=== PATIENT | female | born 1985 | race Caucasian/White ===

== ENCOUNTER → 2023-12-07 13:09 | Outpatient (REF) | payer BC, SELFPAY | LOC: RAD 13:09 | PROVIDERS: ATTENDING PHYSICIAN Nurse Practitioner | DX: M25.551 Pain in right hip (principal); M25.552 Pain in left hip | CPT/HCPCS: 73522 ==

== ENCOUNTER 2024-03-08 09:06 | Emergency (ER) | payer BC, SELFPAY ==
[2024-03-08 09:07] VITALS: BP 143/110
--- NOTE | 2024-03-08 09:49 | ED.GENMED ---
History of Present Illness
General
Chief Complaint: Abdominal Pain
Source: patient
Exam Limitations: none
Time Seen by Provider: 03/08/24 09:32
Travel History
Have you had any contact with someone who has COVID-19?: No
Do you have any symptoms of coronavirus? Fever > 100 degrees, chills, cough, shortness of breath, sore throat, loss of taste or smell, muscle aches, or headache?: No
History of Present Illness
History of Present Illness:
38-year-old female sudden onset of lower abdominal pain overnight. [place] fine when she went to bed. She had bowel movements x 2 which were normal which did not relieve the symptoms. Some of the pain radiates to her pelvis and her rectum. Symptoms
have eased off somewhat. No vomiting no back pain no fever. She is midcycle.
Past History
Past History
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
Social History
Tobacco: Non-smoker
Alcohol: None
Drug: None
Living: with family
Employment: Employed
Family History
Family History: Other (n/c)
Review of Systems
Review of Systems
All Other Systems: Not applicable
Constitutional: Denies fever
Respiratory: Reports no symptoms
Cardiac: Reports no symptoms
: Reports no symptoms
Phy Exam
Physical Exam
Physical Exam:
GENERAL: Alert and oriented in no apparent distress. Sitting up in bed nontoxic in no distress
EYE: Orbits normal.
NECK: Supple
CARDIAC: Regular rate and rhythm without any obvious murmurs.
LUNGS: Clear breath sounds,normal
ABDOMEN: Soft, bowel sounds present. Mild diffuse lower abdominal tenderness slightly greater on the left. No rebound or guarding no mass or hernia
NEUROLOGICAL: Alert and oriented , grossly non-focal
SKIN: Warm and dry, no rash or lesion, no discoloration, skin intact.
MUSCULOSKELETAL: No edema,no deformity.Good color
PSYCH: Normal and appropriate interaction.
Course
Orders/Labs/Results
Orders:
Orders
03/08/24 09:46
CT Abd/pel W Iv And Oral Contr Urgent
Comment:
Reason For Exam: Diffuse lower abdominal pain
IV Insert/Care/Rem.- Treatment PRN
0.9% Sodium Chloride 1000 ml [Nss] 1,000 ml IV BOLUS
Iohexol [Omnipaque] See Protocol PO NOW STA
Test Result ONCE
US Pelvis W Transvag Combined Urgent
Reason For Exam: Pelvic pain
03/08/24 09:52
Complete Blood Count/With Diff Urgent
Comprehensive Metabolic Panel Urgent
HCG, Serum Qualitative Screen Urgent
Lipase Urgent
03/08/24 11:21
Urinalysis Reflex To Culture Urgent
Date Specimen was Collected: 03/08/24
Time Specimen was Collected: 11:20
Urine Microscopic Reflex Cult Urgent
Abnormal Lab Results
03/08/24 03/08/24
09:52 11:21
WBC 19.1 H 10^3/uL
(4.8-10.8)
Hgb 11.9 L g/dL
(12.0-16.0)
Hct 36.4 L %
(37.0-47.0)
MCHC 32.7 L g/dL
(33.0-37.0)
RDW 14.6 H %
(11.5-14.5)
Plt Count 448 H 10^3/uL
(130-400)
Abs Immat Gran (auto) 0.1 H 10^3/uL
(0-0.05)
Absolute Neuts (auto) 14.4 H 10^3/uL
(1.4-6.5)
Absolute Monos (auto) 1.0 H 10^3/uL
(0.1-0.6)
Immature Gran % 0.6 H %
(0-0.5)
Neutrophils % 75.7 H %
(42.2-75.2)
Lymphocytes % 16.6 L %
(20.5-51.1)
Ur Occult Blood Reflex Trace A
(Negative)
03/08/24 09:52
03/08/24 09:52
Vital Signs
Initial and Last Documented VS:
Initial Vital Signs
Temp Pulse Resp BP Pulse Ox
98.2 F 80 20 143/110 100
03/08/24 09:07 03/08/24 09:07 03/08/24 09:07 03/08/24 09:07 03/08/24 09:07
Last Documented Vital Signs
Temp Pulse Resp BP Pulse Ox
98.2 F 80 20 143/110 100
03/08/24 09:07 03/08/24 09:07 03/08/24 09:07 03/08/24 09:07 03/08/24 09:07
MDM/Problems Addressed
Differential Diagnosis Includes:
Large differential including [employer] issue with sudden onset. Could be a ruptured ovarian cyst. Doubt torsion. She is not behaving like a torsion. She is in no distress. Diverticulitis or appendicitis also in the differential. Workup in progress
including labs ultrasound and CT. If ultrasound clearly gives us an answer we can cancel the CT
*Radiology
Radiology exam reviewed: radiology read reviewed (Ultrasound shows good flow. 2.8 cm complex functional complex cyst. Some free fluid. Good flow to both ovaries. CT shows mass in the left upper quadrant at the tail of pancreas.)
*Pulse Oximetry
Patient hypoxic: no
*Critical Care Note
Total Time (30-74mins, 75-104mins- exclusive of procedures): Not Applicable
Update Note
Update Note:
Patient's symptoms are improving. She remains nontoxic. She does have a leukocytosis that is slightly increased but has a chronic leukocytosis from her splenic issues. I do not feel the mass or structure at the tip of the pancreas has any bearing
on current symptoms. This was sudden pain last night. Most likely a ruptured cyst. Nothing acutely surgical. Outpatient observation and follow-up. Patient was given copy of CT for follow-up MRI and ultrasound for follow-up ultrasound
ED Attending Note
-
Portions of this chart may have been created with voice recognition software.� Occasional wrong word or��sound alike� substitutions may have occurred due to the inherent limitations of voice recognition software.
Discharge Plan
Departure
Patient Disposition: Home (Routine Discharge)
Date of Disposition: 03/08/24
Time of Disposition: 13:22
Patient with high blood pressure during this ER visit?: Yes
Discharge Problem:
Acute lower abdominal pain, Possible ruptured cyst, Inc. lesion at the tip of the pancreas
Instructions: Ovarian cysts, Abdominal Pain, BLOOD PRESSURE
Prescriptions:
No Action
amoxicillin [Amoxil] 875 MG tablet
875 mg PO BID Qty: 20 0RF
Referrals:
Kayla Fitzpatrick CRNP [Family Provider] - Follow up in 2-3 days
Activity Restrictions/Additional Instructions:
Get a follow-up ultrasound in 6 to 12 weeks as directed on the ultrasound report
Follow-up MRI as we discussed
Recheck with increased pain fever vomiting or if symptoms have not resolved in 1 to 2 days
Interventions
Interventions:
*Risk Screen - Suicide Last Done: 03/08/24 09:07
*General Assessment Last Done: 03/08/24 09:07
*Neglect/Abuse Screening Last Done: 03/08/24 09:07
LM-Pszrgu-Whrwipbidd Assessment Last Done: 03/08/24 09:59
Discharge Date and Time
Print Language: GUINEAN
[2024-03-08] MEDS: OMNIPAQUE 50 ML PO (09:51)
[2024-03-08] MEDS: NSS 1000 IV (09:58)
[2024-03-08 10:11] LABS: % Basophils 0.7 % (0-2); % Immature Granulocytes 0.6 % (0-0.5); % Lymphocytes 16.6 % (20.5-51.1); % Monocytes 5.4 % (1.7-9.3); % Neutrophils 75.7 % (42.2-75.2); Absolute Basophils 0.1 10^3/uL (0-0.2); Absolute Eosinophils 0.2 10^3/uL (0-0.7); Absolute Immature Granulocytes 0.1 10^3/uL (0-0.05); Absolute Lymphocytes 3.2 10^3/uL (1.2-3.4); Absolute Neutrophils 14.4 10^3/uL (1.4-6.5); Hematocrit 36.4 % (37.0-47.0); Hemoglobin 11.9 g/dL (12.0-16.0); Mean Corp Hgb Conc. 32.7 g/dL (33.0-37.0); Mean Corpuscular Hgb 28.3 pg (27.0-31.0); Mean Corpuscular Volume 86.7 fL (81.0-99.0); Mean Platelet Volume 9.1 fL (7.4-10.4); Nucleated Red Blood Cells % 0 %; Platelet Count 448 10^3/uL (130-400); Red Cell Dist. Width 14.6 % (11.5-14.5); White Blood Cell Count 19.1 10^3/uL (4.8-10.8)
[2024-03-08 10:27] LABS: ALT (SGPT) 23 U/L (0-35); AST (SGOT) 25 U/L (14-36); Albumin 4.1 g/dl (3.5-5.0); Alkaline Phosphatase 99 U/L (38-126); Blood Urea Nitrogen 12 mg/dl (7-17); Calcium 9.8 mg/dl (8.4-10.2); Carbon Dioxide 25 mmol/L (22-30); Chloride 104 mmol/L (98-107); Glucose 92 mg/dl (70-99); Lipase 91 U/L (23-300); Potassium 4.4 mmol/L (3.5-5.1); Sodium 138 mmol/L (135-145); Total Bilirubin 0.5 mg/dl (0.2-1.3); Total Protein 7.5 g/dl (6.3-8.2); eGFR > 60.00
[2024-03-08 10:44] LABS: HCG, Serum Qualitative Screen Negative
[2024-03-08 11:57] LABS: Urine Albumin Negative (Neg - Trace); Urine Bilirubin Negative (Negative); Urine Character Clear (Clear); Urine Color Yellow; Urine Glucose Negative (Negative); Urine Ketone Negative (Negative); Urine Leukocyte Negative (Negative); Urine Nitrite Negative (Negative); Urine Occult Blood Trace (Negative); Urine Specific Gravity 1.005 (<1.030); Urine Urobilinogen Negative (Neg - 1+)
[2024-03-08 13:31] VITALS: BP 154/74
[2024-03-08 13:50] LABS: Urine Red Blood Cell 0-2 /HPF (0-2)
[2024-03-08 13:51] LABS: Urine White Cell 0-2 /HPF (0-5)
== END 2024-03-08 13:33 | disposition home or self-care (01) ==
LOC: EMR 09:06
PROVIDERS: EMERGENCY PHYSICIAN Emergency Medicine; FAMILY PHYSICIAN Nurse Practitioner
DX: R10.30 Lower abdominal pain, unspecified (principal)
CPT/HCPCS: 99284; 96360; 74177; 76830; 76856; 80053; 81003; 81015; 83690; 84703; 85025; Q9967

== ENCOUNTER → 2024-05-11 07:33 | Outpatient (REF) | payer BC, SELFPAY | LOC: PAVMRI 07:33 | PROVIDERS: ATTENDING PHYSICIAN Nurse Practitioner | DX: K86.89 Other specified diseases of pancreas (principal) | CPT/HCPCS: 74183; A9575 ==

== ENCOUNTER 2024-08-09 13:35 | Emergency (ER) | payer BC, SELFPAY ==
[2024-08-09 13:37] VITALS: BP 185/121
[2024-08-09 13:57] VITALS: BP 143/84
--- NOTE | 2024-08-09 13:59 | ED.GENMED ---
History of Present Illness
General
Chief Complaint: Nose Bleed
Source: patient
Exam Limitations: none
Time Seen by Provider: 08/09/24 13:52
History of Present Illness
History of Present Illness:
39-year-old female here for 2 issues. Nosebleed from the left nares spontaneous started about an hour ago. Patient self pinched with resolution. Noted moderate blood loss. No trauma no preceding explanation for why she bled. No history of
nosebleeds. Also has felt slightly off the last few days. Some weakness. Noted to have significant hypertension today checked by her sister. Denies chest pain or shortness of breath.
Past History
Past History
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
Social History
Tobacco: Non-smoker
Alcohol: None
Drug: None
Living: with family
Employment: Employed
Family History
Family History: Other (n/c)
Review of Systems
Review of Systems
All Other Systems: Not applicable
Constitutional: Denies fever
Respiratory: Reports no symptoms
Cardiac: Reports no symptoms
Phy Exam
Physical Exam
Physical Exam:
GENERAL: Alert and oriented in no apparent distress
EYE: Orbits normal.
NECK: Supple
ENT: Pharynx without erythema. No active bleeding. Right nares clear. Irritated area of the left nasal septum. No active bleeding
CARDIAC: Regular rate and rhythm without any obvious murmurs.
LUNGS: Clear breath sounds,normal
ABDOMEN: Soft, without focal tenderness or distention
NEUROLOGICAL: Alert and oriented , grossly non-focal
SKIN: Warm and dry, no rash or lesion, no discoloration, skin intact.
MUSCULOSKELETAL: No edema,no deformity.Good color
PSYCH: Normal and appropriate interaction.
Course
Orders/Labs/Results
Orders:
Orders
08/09/24 13:58
Electrocardiogram (*1) Stat
Reason for Study: Other
Other Reason for Exam: chest pain
EKG- Treatment ONCE
IV Insert/Care/Rem.- Treatment PRN
Test Result ONCE
Pulse Ox/cont/shift [RESP] Stat
Quantity: 1
08/09/24 14:11
Basic Metabolic Panel Urgent
Complete Blood Count/With Diff Urgent
HCG, Serum Qualitative Screen Urgent
Troponin I Urgent
Urinalysis Reflex To Culture Urgent
Date Specimen was Collected: 08/09/24
Time Specimen was Collected: 14:07
Urine Microscopic Reflex Cult Urgent
Urine Culture Urgent
EDMOND Source: U
Specimen Description:
Date Specimen was Collected: 08/09/24
Time Specimen was Collected: 14:07
Abnormal Lab Results
08/09/24
14:11
WBC 17.8 H 10^3/uL
(4.8-10.8)
Hct 36.6 L %
(37.0-47.0)
MCHC 32.8 L g/dL
(33.0-37.0)
RDW 14.6 H %
(11.5-14.5)
Plt Count 512 H 10^3/uL
(130-400)
Abs Immat Gran (auto) 0.1 H 10^3/uL
(0-0.05)
Absolute Neuts (auto) 12.1 H 10^3/uL
(1.4-6.5)
Absolute Lymphs (auto) 3.9 H 10^3/uL
(1.2-3.4)
Absolute Monos (auto) 1.3 H 10^3/uL
(0.1-0.6)
Ur Occult Blood Reflex 3+ A
(Negative)
Urine Nitrite (Reflex) Positive A
(Negative)
Leukocyte Esterase Rfl 1+ A
(Negative)
Urine RBC 11-15 A /HPF
(0-2)
Urine WBC (Reflex) 11-15 A /HPF
(0-5)
Urine Bacteria (Reflex) Many A
(Negative)
08/09/24 14:11
08/09/24 14:11
Vital Signs
Initial and Last Documented VS:
Initial Vital Signs
Temp Pulse Resp BP Pulse Ox
98.2 F 103 18 185/121 95
08/09/24 13:37 08/09/24 13:37 08/09/24 13:37 08/09/24 13:37 08/09/24 13:37
Last Documented Vital Signs
Temp Pulse Resp BP Pulse Ox
98.2 F 83 16 160/89 98
08/09/24 13:37 08/09/24 15:37 08/09/24 16:00 08/09/24 15:37 08/09/24 15:37
Procedures
Nosebleed
Drug treatment: Epinephrine
Treatment: Silver nitrate cautery and Merocel packing
Post treatment bleeding: none- good control
MDM/Problems Addressed
Differential Diagnosis Includes:
Patient with 2 independent processes. Bleeding from left nares at Cookie box plexus. Will cauterize. Other symptoms of a weakness lightheadedness elevated blood pressure. Will check labs test and cardiac testing.
*Pulse Oximetry
Patient hypoxic: no
*Critical Care Note
Total Time (30-74mins, 75-104mins- exclusive of procedures): Not Applicable
Data Reviewed
Review of Other/Old Records Reveals: Labs, Records and Testing
Update Note
Update Note:
Patient is remained stable. No recurrent bleeding. Discharged to follow-up
ED Attending Note
-
Portions of this chart may have been created with voice recognition software.� Occasional wrong word or��sound alike� substitutions may have occurred due to the inherent limitations of voice recognition software.
Discharge Plan
Departure
Patient Disposition: Home (Routine Discharge)
Date of Disposition: 08/09/24
Time of Disposition: 16:11
Patient with high blood pressure during this ER visit?: Yes
Discharge Problem:
Left nares epistaxis, Chronic leukocytosis, Elevated blood pressure reading, Possible UTI
Instructions: Nosebleeds (DC), Urinary Tract Infection, Adult ED, BLOOD PRESSURE
Prescriptions:
New
cefdinir 300 mg capsule
300 mg PO BID 5 Days Qty: 10 0RF
No Action
amoxicillin [Amoxil] 875 MG tablet
875 mg PO BID Qty: 20 0RF
Referrals:
Kayla Fitzpatrick CRNP [Family Provider] - Follow up in 2-3 days
Jozef Davila MD [Active] - Follow up in 2-3 days
Activity Restrictions/Additional Instructions:
The prescription was sent to your pharmacy
Packing removal in 2 to 3 days
Interventions
Interventions:
*Risk Screen - Suicide Last Done: 08/09/24 13:38
*General Assessment Last Done: 08/09/24 13:38
*Neglect/Abuse Screening Last Done: 08/09/24 13:38
ED- Fall Risk Assessment Last Done: 08/09/24 15:38
*ED COVID-19 Vaccine History Last Done: 08/09/24 14:00
ED-EENT Assessment Last Done: 08/09/24 14:00
Discharge Date and Time
Print Language: [place]
[2024-08-09 14:18] LABS: % Basophils 0.6 % (0-2); % Eosinophils 1.7 % (0-6); % Immature Granulocytes 0.5 % (0-0.5); % Lymphocytes 21.7 % (20.5-51.1); % Monocytes 7.2 % (1.7-9.3); % Neutrophils 68.3 % (42.2-75.2); Absolute Basophils 0.1 10^3/uL (0-0.2); Absolute Eosinophils 0.3 10^3/uL (0-0.7); Absolute Immature Granulocytes 0.1 10^3/uL (0-0.05); Absolute Lymphocytes 3.9 10^3/uL (1.2-3.4); Absolute Monocytes 1.3 10^3/uL (0.1-0.6); Absolute Neutrophils 12.1 10^3/uL (1.4-6.5); Hematocrit 36.6 % (37.0-47.0); Mean Corp Hgb Conc. 32.8 g/dL (33.0-37.0); Mean Corpuscular Hgb 28.4 pg (27.0-31.0); Mean Corpuscular Volume 86.7 fL (81.0-99.0); Mean Platelet Volume 9.1 fL (7.4-10.4); Nucleated Red Blood Cells % 0 %; Platelet Count 512 10^3/uL (130-400); Red Blood Cell Count 4.22 10^6/uL (4.20-5.40); Red Cell Dist. Width 14.6 % (11.5-14.5); White Blood Cell Count 17.8 10^3/uL (4.8-10.8)
[2024-08-09 14:20] LABS: Urine Albumin Trace (Neg - Trace); Urine Bilirubin Negative (Negative); Urine Character Clear (Clear); Urine Color Yellow; Urine Glucose Negative (Negative); Urine Ketone Negative (Negative); Urine Leukocyte 1+ (Negative); Urine Nitrite Positive (Negative); Urine Occult Blood 3+ (Negative); Urine Specific Gravity 1.015 (<1.030); Urine Urobilinogen Negative (Neg - 1+); Urine pH 6.5 (5.0-9.0)
[2024-08-09 14:32] LABS: HCG, Serum Qualitative Screen Negative
[2024-08-09 14:36] LABS: Blood Urea Nitrogen 11 mg/dl (7-17); Calcium 9.3 mg/dl (8.4-10.2); Carbon Dioxide 25 mmol/L (22-30); Chloride 103 mmol/L (98-107); Glucose 82 mg/dl (70-99); Potassium 3.9 mmol/L (3.5-5.1); Sodium 139 mmol/L (135-145); Urine Squamous Cell >30 /LPF (Few); eGFR > 60.00
[2024-08-09 14:37] LABS: Urine Urothelial Cell 0-2 /LPF (FEW)
[2024-08-09 14:38] LABS: Urine Bacteria Many (Negative)
[2024-08-09 14:46] LABS: Troponin I < 0.012 ng/ml
[2024-08-09 15:37] VITALS: BP 160/89
== END 2024-08-09 16:21 | disposition home or self-care (01) ==
LOC: EMR 13:35
PROVIDERS: EMERGENCY PHYSICIAN Emergency Medicine; FAMILY PHYSICIAN Nurse Practitioner
DX: R04.0 Epistaxis (principal); D72.829 Elevated white blood cell count, unspecified; R03.0 Elevated blood-pressure reading, without diagnosis of hypertension
CPT/HCPCS: 99283; 30901; 80048; 81003; 81015; 84484; 84703; 85025; 87077; 87086; 93005

== ENCOUNTER 2024-08-10 22:31 | Emergency (ER) | payer BC, SELFPAY ==
[2024-08-10 22:39] VITALS: BP 194/121
--- NOTE | 2024-08-10 23:50 | ED.GENMED ---
Addendum entered and electronically signed by Erika Carrillo PA-C 08/11/24 09:46:
urine culture pos for e coli prelim
pt on cefdinir
feeling ok
await sensitivities
Original Note:
History of Present Illness
General
Chief Complaint: Nose Bleed
Source: patient
Exam Limitations: none
Time Seen by Provider: 08/10/24 23:19
History of Present Illness
History of Present Illness:
39-year-old female recurrent nosebleed that started at 630 this evening. Moderate nature. Seen yesterday by myself. Cauterized. Tach. No other complaints. Some nausea however from swallowing blood
Past History
Past History
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
Social History
Tobacco: Non-smoker
Alcohol: None
Drug: None
Living: with family
Employment: Employed
Family History
Family History: Other (n/c)
Phy Exam
Physical Exam
Physical Exam:
General: Nontoxic appearing in no distress
Skin: Warm and dry, no rash
Neuro: Alert, nontoxic, grossly nonfocal
Psychiatric: Good eye contact and appropriate
ENT: Moderate bleeding left nares. Bright red. Arterial pumper inferior border along the base of the septum
Course
Orders/Labs/Results
Orders:
Orders
08/10/24 23:43
Tranexamic Acid 1,000 mg .ROUTE .STK-MED ONE
Vital Signs
Initial and Last Documented VS:
Initial Vital Signs
Temp Pulse Resp BP Pulse Ox
98.2 F 108 16 194/121 98
08/10/24 22:39 08/10/24 22:39 08/10/24 22:39 08/10/24 22:39 08/10/24 22:39
Last Documented Vital Signs
Temp Pulse Resp BP Pulse Ox
98.2 F 83 20 166/101 97
08/10/24 22:39 08/10/24 23:58 08/10/24 23:58 08/10/24 23:58 08/10/24 23:58
*Critical Care Note
Total Time (30-74mins, 75-104mins- exclusive of procedures): Not Applicable
Update Note
Update Note:
Procedure: Initial cotton gauze with epinephrine. This did not even remotely control the bleeding. This was removed. Suction. Arterial bleeder noted. However bleeding too fast to cauterize. Then attempted anterior packing this also did not
succeed. Double Merocel would not fully but does appear to keep the bleeding under somewhat better control. Feel this needs ENT's involvement. They were called.
Seen by ENT. Currently stable. Discharged to follow-up
ED Attending Note
-
Portions of this chart may have been created with voice recognition software.� Occasional wrong word or��sound alike� substitutions may have occurred due to the inherent limitations of voice recognition software.
Discharge Plan
Departure
Patient Disposition: Home (Routine Discharge)
Date of Disposition: 08/11/24
Time of Disposition: 00:55
Patient with high blood pressure during this ER visit?: Yes
Discharge Problem:
Recurrent epistaxis
Instructions: Nosebleeds (DC), BLOOD PRESSURE
Prescriptions:
No Action
amoxicillin [Amoxil] 875 MG tablet
875 mg PO BID Qty: 20 0RF
cefdinir 300 mg capsule
300 mg PO BID 5 Days Qty: 10 0RF
Referrals:
Kayla Fitzpatrick CRNP [Family Provider] -
Yoav Wiseman MD [Active] - Follow up in 2-3 days
Interventions
Interventions:
*Risk Screen - Suicide Last Done: 08/10/24 22:39
*General Assessment Last Done: 08/10/24 22:39
*Neglect/Abuse Screening Last Done: 08/10/24 22:39
*ED COVID-19 Vaccine History Last Done: 08/10/24 22:39
ED-EENT Assessment Last Done: 08/11/24 00:02
Discharge Date and Time
Print Language: TAMAZIGHT
[2024-08-10 23:58] VITALS: BP 166/101
[2024-08-11] VITALS: BMI 39.0
[2024-08-11 00:56] VITALS: BP 162/96
== END 2024-08-11 01:17 | disposition home or self-care (01) ==
LOC: EMR 22:31
PROVIDERS: EMERGENCY PHYSICIAN Emergency Medicine; FAMILY PHYSICIAN Nurse Practitioner
DX: R04.0 Epistaxis (principal)
CPT/HCPCS: 99282; 30901

== ENCOUNTER → 2024-10-05 12:51 | Outpatient (REF) | payer BC, SELFPAY | LOC: RAD 12:51 | PROVIDERS: ATTENDING PHYSICIAN Family Medicine; FAMILY PHYSICIAN Nurse Practitioner | DX: Z87.891 Personal history of nicotine dependence (principal); J10.1 Influenza due to other identified influenza virus with other respiratory manifestations; M94.0 Chondrocostal junction syndrome [Tietze]; Z90.81 Acquired absence of spleen | CPT/HCPCS: 71046 ==

== ENCOUNTER 2024-12-25 16:18 | Emergency (ER) | payer BC, SELFPAY ==
[2024-12-25 16:22] VITALS: BP 163/110
[2024-12-25 16:46] LABS: % Basophils 0.4 % (0-2); % Immature Granulocytes 0.2 % (0-0.5); % Lymphocytes 18.3 % (20.5-51.1); % Monocytes 7.6 % (1.7-9.3); % Neutrophils 71.5 % (42.2-75.2); Absolute Eosinophils 0.2 10^3/uL (0-0.7); Absolute Lymphocytes 1.9 10^3/uL (1.2-3.4); Absolute Monocytes 0.8 10^3/uL (0.1-0.6); Absolute Neutrophils 7.3 10^3/uL (1.4-6.5); Hematocrit 37.6 % (37.0-47.0); Hemoglobin 12.6 g/dL (12.0-16.0); Mean Corp Hgb Conc. 33.5 g/dL (33.0-37.0); Mean Corpuscular Hgb 27.6 pg (27.0-31.0); Mean Corpuscular Volume 82.5 fL (81.0-99.0); Mean Platelet Volume 9.6 fL (7.4-10.4); Nucleated Red Blood Cells % 0 %; Platelet Count 396 10^3/uL (130-400); Red Blood Cell Count 4.56 10^6/uL (4.20-5.40); Red Cell Dist. Width 16.1 % (11.5-14.5); White Blood Cell Count 10.2 10^3/uL (4.8-10.8)
[2024-12-25 16:58] LABS: HCG, Serum Qualitative Screen Negative
[2024-12-25 17:01] LABS: ALT (SGPT) 67 U/L (0-35); AST (SGOT) 66 U/L (14-36); Albumin 3.7 g/dl (3.5-5.0); Alkaline Phosphatase 92 U/L (38-126); Blood Urea Nitrogen 13 mg/dl (7-17); Calcium 9.3 mg/dl (8.4-10.2); Carbon Dioxide 25 mmol/L (22-30); Chloride 107 mmol/L (98-107); Glucose 110 mg/dl (70-99); Lipase 92 U/L (23-300); Potassium 3.3 mmol/L (3.5-5.1); Sodium 139 mmol/L (135-145); Total Bilirubin 0.3 mg/dl (0.2-1.3); eGFR > 60.00
[2024-12-25] MEDS: NSS 1000 IV (20:00)
[2024-12-25 20:23] VITALS: BMI 38.9
--- NOTE | 2024-12-25 20:56 | ED.GENMED ---
History of Present Illness
General
Chief Complaint: Abdominal Symptoms
Source: patient
Exam Limitations: none
Time Seen by Provider: 12/25/24 19:00
History of Present Illness
History of Present Illness:
1 week of diarrhea abdominal cramps occasional vomiting. Diarrhea is watery. No blood or mucus. Was on antibiotics prior to this. No one else is ill at home. No significant abdominal pain
Past History
Past History
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
Social History
Tobacco: Non-smoker
Alcohol: None
Drug: None
Living: with family
Employment: Employed
Family History
Family History: Other (n/c)
Review of Systems
Review of Systems
All Other Systems: Not applicable
Constitutional: Denies fever
Respiratory: Reports no symptoms
: Reports no symptoms
Phy Exam
Physical Exam
Physical Exam:
GENERAL: Alert and oriented in no apparent distress
EYE: Orbits normal.
NECK: Supple, no significant adenopathy.
ENT: Pharynx without erythema
CARDIAC: Regular rate and rhythm without any obvious murmurs.
LUNGS: Clear breath sounds,normal
ABDOMEN: Soft, without focal tenderness or distention
NEUROLOGICAL: Alert and oriented , grossly non-focal
SKIN: Warm and dry, no rash or lesion, no discoloration, skin intact.
MUSCULOSKELETAL: No edema,no deformity.Good color
PSYCH: Normal and appropriate interaction.
Course
Orders/Labs/Results
Orders:
Orders
12/25/24 16:26
IV Insert/Care/Rem.- Treatment PRN
Test Result ONCE
12/25/24 16:38
Complete Blood Count/With Diff Urgent
Comprehensive Metabolic Panel Urgent
HCG, Serum Qualitative Screen Urgent
Comment: Notify provider if positive test present
Lipase Urgent
12/25/24 19:31
0.9% Sodium Chloride 1000 ml [Nss] 1,000 ml IV BOLUS
12/25/24 19:32
US Abdomen Complete/Upper Urgent
Comment:
Reason For Exam: Abdominal pain elevated LFTs
12/25/24 19:45
STOOL [C difficile Antigen & Toxins] Urgent
EDMOND Source: Feces/Stool
Specimen Description:
Date Specimen was Collected: 12/25/24
Time Specimen was Collected: 19:40
Stool Culture Urgent
EDMOND Source: Feces/Stool
Specimen Description:
Date Specimen was Collected: 12/25/24
Time Specimen was Collected: 19:40
12/25/24 23:10
Potassium Chloride 10% Elixir [KCl Elixir] 40 meq PO NOW STA
Abnormal Lab Results
12/25/24
16:38
RDW 16.1 H %
(11.5-14.5)
Absolute Neuts (auto) 7.3 H 10^3/uL
(1.4-6.5)
Absolute Monos (auto) 0.8 H 10^3/uL
(0.1-0.6)
Lymphocytes % 18.3 L %
(20.5-51.1)
Potassium 3.3 L mmol/L
(3.5-5.1)
Glucose 110 H mg/dl
(70-99)
AST 66 H U/L
(14-36)
ALT 67 H U/L
(0-35)
12/25/24 16:38
12/25/24 16:38
Vital Signs
Initial and Last Documented VS:
Initial Vital Signs
Temp Pulse Resp BP Pulse Ox
98.2 F 102 22 163/110 98
12/25/24 16:22 12/25/24 16:22 12/25/24 16:22 12/25/24 16:22 12/25/24 16:22
Last Documented Vital Signs
Temp Pulse Resp BP Pulse Ox
98.2 F 80 16 153/92 99
12/25/24 16:22 12/25/24 23:23 12/25/24 23:23 12/25/24 23:23 12/25/24 23:23
MDM/Problems Addressed
Differential Diagnosis Includes:
Patient describing enterocolitis. Possibly viral foodborne. Sit C. difficile in the differential. Nonsurgical abdomen. Will check ultrasound with minimal LFT elevation fluids.
*Radiology
Radiology exam reviewed: radiology read reviewed (Mild hepatomegaly. Tiny stones in the neck of the gallbladder however no acute cholecystitis)
*Pulse Oximetry
Patient hypoxic: no
*Critical Care Note
Total Time (30-74mins, 75-104mins- exclusive of procedures): Not Applicable
Data Reviewed
Review of Other/Old Records Reveals: Labs, Records and Testing
Update Note
Update Note:
Symptoms not consistent with gallbladder issue. All consistent with enteritis. Very nontoxic. Stable for discharge to follow-up.
ED Attending Note
-
Portions of this chart may have been created with voice recognition software.� Occasional wrong word or��sound alike� substitutions may have occurred due to the inherent limitations of voice recognition software.
Discharge Plan
Departure
Patient Disposition: Home (Routine Discharge)
Date of Disposition: 12/25/24
Time of Disposition: 23:11
Patient with high blood pressure during this ER visit?: Yes
Discharge Problem:
Enterocolitis, Incidental gallstones
Instructions: Diarrhea in teens and adults, BLOOD PRESSURE
Prescriptions:
No Action
amoxicillin [Amoxil] 875 MG tablet
875 mg PO BID Qty: 20 0RF
cefdinir 300 mg capsule
300 mg PO BID 5 Days Qty: 10 0RF
Referrals:
Kayla Fitzpatrick CRNP [Family Provider] - Follow up in 2-3 days
Interventions
Interventions:
*Risk Screen - Suicide Last Done: 12/25/24 16:22
*General Assessment Last Done: 12/25/24 16:22
*Neglect/Abuse Screening Last Done: 12/25/24 16:22
*ED- Fall Risk Assessment Last Done: 12/25/24 21:00
*ED COVID-19 Vaccine History Last Done: 12/25/24 21:00
*Nursing Disposition Last Done: 12/25/24 23:30
JY-Twacia-Readpowygl Assessment Last Done: 12/25/24 23:20
Discharge Date and Time
Discharge Date/Time: 12/25/24 23:30
Print Language: KOREAN
[2024-12-25 22:00] VITALS: BP 151/87
[2024-12-25] MEDS: KCL ELIXIR 40 MEQ PO (23:18)
[2024-12-25 23:23] VITALS: BP 153/92
== END 2024-12-25 23:30 | disposition home or self-care (01) ==
LOC: EMR 16:18
PROVIDERS: Emergency Medicine; EMERGENCY PHYSICIAN Emergency Medicine; FAMILY PHYSICIAN Nurse Practitioner
DX: K52.9 Noninfective gastroenteritis and colitis, unspecified (principal); K80.20 Calculus of gallbladder without cholecystitis without obstruction; Z90.81 Acquired absence of spleen
CPT/HCPCS: 96360; 99284; 76700; 80053; 83690; 84703; 85025; 87045; 87046; 87324; 87427; 87449

== ENCOUNTER → 2025-02-15 16:20 | Outpatient (REF) | payer BC, SELFPAY | LOC: HWRAD 16:20 | PROVIDERS: ATTENDING PHYSICIAN Obstetrics & Gynecology; FAMILY PHYSICIAN Nurse Practitioner | DX: N83.209 Unspecified ovarian cyst, unspecified side (principal) | CPT/HCPCS: 76830; 76856 ==

== ENCOUNTER 2025-03-05 09:43 | Emergency (ER) | payer BC, SELFPAY ==
[2025-03-05 09:52] VITALS: BP 165/95
[2025-03-05 10:22] LABS: % Basophils 0.8 % (0-2); % Eosinophils 1.9 % (0-6); % Immature Granulocytes 0.5 % (0-0.5); % Lymphocytes 22.4 % (20.5-51.1); % Monocytes 3.7 % (1.7-9.3); % Neutrophils 70.7 % (42.2-75.2); Absolute Basophils 0.1 10^3/uL (0-0.2); Absolute Eosinophils 0.3 10^3/uL (0-0.7); Absolute Immature Granulocytes 0.1 10^3/uL (0-0.05); Absolute Monocytes 0.5 10^3/uL (0.1-0.6); Absolute Neutrophils 9.4 10^3/uL (1.4-6.5); Hemoglobin 11.7 g/dL (12.0-16.0); Mean Corp Hgb Conc. 32.5 g/dL (33.0-37.0); Mean Corpuscular Hgb 28.2 pg (27.0-31.0); Mean Corpuscular Volume 86.7 fL (81.0-99.0); Mean Platelet Volume 9.7 fL (7.4-10.4); Nucleated Red Blood Cells % 0 %; Platelet Count 437 10^3/uL (130-400); Red Blood Cell Count 4.15 10^6/uL (4.20-5.40); Red Cell Dist. Width 15.9 % (11.5-14.5); White Blood Cell Count 13.3 10^3/uL (4.8-10.8)
[2025-03-05 10:33] LABS: HCG, Serum Qualitative Screen Negative
[2025-03-05 10:37] LABS: ALT (SGPT) 23 U/L (0-35); AST (SGOT) 19 U/L (14-36); Albumin 3.9 g/dl (3.5-5.0); Alkaline Phosphatase 82 U/L (38-126); Blood Urea Nitrogen 19 mg/dl (7-17); Calcium 9.7 mg/dl (8.4-10.2); Carbon Dioxide 22 mmol/L (22-30); Chloride 108 mmol/L (98-107); Glucose 184 mg/dl (70-99); Lipase 157 U/L (23-300); Potassium 3.9 mmol/L (3.5-5.1); Sodium 138 mmol/L (135-145); Total Bilirubin 0.3 mg/dl (0.2-1.3); eGFR > 60.00
--- NOTE | 2025-03-05 11:03 | ED.GENMED ---
History of Present Illness
General
Chief Complaint: Musculo-Skeletal Complaint
Source: patient
Exam Limitations: none
Time Seen by Provider: 03/05/25 10:43
History of Present Illness
History of Present Illness:
39yoF with a history of hypertension, splenic cysts s/p surgical removal x2, obesity, and ADHD presenting for evaluation of hip pain. Patient reports right hip pain for the past week or so. She had similar pains 2 years ago and was seen by several
specialist including orthopedics and rheumatology. She had extensive testing including an MRI but never received a formal diagnosis. Orthopedics told her that she may have bursitis and she was treated with meloxicam. Pain went away for a while
but recurred this past week. She denies any trauma but does state she is having more intercourse than normal and is unsure if this is related. She has been taking NSAIDs which provides relief for about 2-3 hours. Pain is worse with movement and
weight bearing. She also reports pain in her epigastric region near her surgical scar. She states it feels like something is pushing against her scar and believes she may have a hernia. No vomiting, constipation, urinary symptoms, fevers.
Past History
Past History
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
Social History
Tobacco: Non-smoker
Alcohol: None
Drug: None
Living: with family
Employment: Employed
Family History
Family History: Other (n/c)
Phy Exam
General Physical Exam
General Presentation: well appearing and no apparent distress
General Skin: warm and dry
General Habitus: normal
General Mental: alert
ENT Exam
ENT Exam: normocephalic
Pulmonary Exam
Pulmonary Exam: no respiratory distress
Gastrointestinal Exam
Gastrointestinal Exam: non tender, soft, non distended and surgical scar
Neurological Exam
Neurological Exam: alert
Dilan Coma Scale
Eye Opening: Spontaneous
Verbal Response: Oriented
Motor Response: Obeys Commands
GCS Total Score: 15
Musculoskeletal Exam
Musculoskeletal Exam: other (R hip: Normal to inspection. No tenderness to palpation of joint. ROM is normal. 2+ DP pulse.)
Skin Exam
Skin Exam: normal color and warm/dry
Psychiatric Exam
Psychiatric Exam: normal mood/affect
Course
Orders/Labs/Results
Orders:
Orders
03/05/25 09:57
Test Result ONCE
03/05/25 10:06
Complete Blood Count/With Diff Urgent
Comprehensive Metabolic Panel Urgent
HCG, Serum Qualitative Screen Urgent
Comment: Notify provider if positive test present
Lipase Urgent
03/05/25 11:02
Hip, Right 2-3 Views [CR Hip - RT w/wo Pel 2-3 Vw*] Urgent
Comment:
Reason For Exam: pain
Include a pelvis x-ray?: Yes
03/05/25 11:03
CT Abd/pelvis W Iv Cont Urgent
Comment:
Reason For Exam: epigastric pain, possible hernia, R hip pain
03/05/25 13:00
Ketorolac [Toradol] 15 mg IV NOW STA
Abnormal Lab Results
03/05/25
10:06
WBC 13.3 H 10^3/uL
(4.8-10.8)
RBC 4.15 L 10^6/uL
(4.20-5.40)
Hgb 11.7 L g/dL
(12.0-16.0)
Hct 36.0 L %
(37.0-47.0)
MCHC 32.5 L g/dL
(33.0-37.0)
RDW 15.9 H %
(11.5-14.5)
Plt Count 437 H 10^3/uL
(130-400)
Abs Immat Gran (auto) 0.1 H 10^3/uL
(0-0.05)
Absolute Neuts (auto) 9.4 H 10^3/uL
(1.4-6.5)
Chloride 108 H mmol/L
(98-107)
BUN 19 H mg/dl
(7-17)
Glucose 184 H mg/dl
(70-99)
03/05/25 10:06
03/05/25 10:06
Vital Signs
Initial and Last Documented VS:
Initial Vital Signs
Pulse Resp BP Pulse Ox
75 18 165/95 100
03/05/25 09:52 03/05/25 09:52 03/05/25 09:52 03/05/25 09:52
Last Documented Vital Signs
Temp Pulse Resp BP Pulse Ox
98.1 F 79 18 132/71 98
03/05/25 12:00 03/05/25 12:00 03/05/25 12:00 03/05/25 12:00 03/05/25 12:00
MDM/Problems Addressed
Differential Diagnosis Includes:
39yoF here with atraumatic R hip pain x 1 week. Worse with weight bearing/movement. Same pain about 2 years ago and was told it may be bursitis. Also worried about a hernia and c/o epigastric pain. She is hypertensive with otherwise stable vitals.
She is well appearing in no distress. Abdominal exam is benign without palpable hernia. R hip appears normal and ROM is intact. RLE is neurovascularly intact. Differential diagnosis includes but is not limited to: muscular strain, bursitis, OA,
hernia, doubt fracture
Initial ED plan: Labs obtained in triage. WBC 13.3 which appears to be baseline. Remainder of labs unremarkable. Will check R hip x-rays and CT abdomen.
*Pulse Oximetry
Patient hypoxic: no (98%)
*Critical Care Note
Total Time (30-74mins, 75-104mins- exclusive of procedures): Not Applicable
Update Note
Update Note:
Hip x-rays are negative for fractures or arthritis. CT does not show any hernia. There is a 2.9 cm R ovarian cyst although she has no pelvic/RLQ tenderness on exam. No indication for hospitalization. Will trial prednisone for her hip pain. Advised
f/u with PCP and orthopedics. Patient discharged in stable condition.
ED Attending Note
-
Portions of this chart may have been created with voice recognition software.� Occasional wrong word or��sound alike� substitutions may have occurred due to the inherent limitations of voice recognition software.
Discharge Plan
Departure
Patient Disposition: Home (Routine Discharge)
Date of Disposition: 03/05/25
Time of Disposition: 13:00
Patient with high blood pressure during this ER visit?: Yes
Discharge Problem:
Acute pain of right hip
Instructions: Hip pain in adults
Prescriptions:
New
prednisone 50 mg tablet
50 mg PO DAILY Qty: 5 0RF
No Action
amoxicillin [Amoxil] 875 MG tablet
875 mg PO BID Qty: 20 0RF
cefdinir 300 mg capsule
300 mg PO BID 5 Days Qty: 10 0RF
Referrals:
Kayla Fitzpatrick CRNP [Family Provider, Family Practice]
Braxton Pagan MD [Active, Orthopedics]
Activity Restrictions/Additional Instructions:
Apply heat to affected area. Take prednisone as prescribed. You may take Tylenol 650 mg every 6 hours as needed.
Please call tomorrow to schedule a follow-up with orthopedics and your family doctor. Return to the ER with any new or worsening symptoms.
Interventions
Interventions:
*Risk Screen - Suicide Last Done: 03/05/25 09:52
*General Assessment Last Done: 03/05/25 09:52
*Neglect/Abuse Screening Last Done: 03/05/25 09:52
*ED- Fall Risk Assessment Last Done: 03/05/25 11:25
*ED COVID-19 Vaccine History Last Done: 03/05/25 11:25
*Nursing Disposition Last Done: 03/05/25 13:33
ED-Musculoskeletal Assessment Last Done: 03/05/25 13:00
Discharge Date and Time
Discharge Date/Time: 03/05/25 13:33
Print Language: PORTUGUESE
[2025-03-05 11:24] VITALS: BMI 40.2
[2025-03-05 12:00] VITALS: BP 132/71
[2025-03-05] MEDS: TORADOL 15 MG IV (13:05)
== END 2025-03-05 13:33 | disposition home or self-care (01) ==
LOC: EMR 09:43
PROVIDERS: EMERGENCY PHYSICIAN Emergency Medicine; FAMILY PHYSICIAN Nurse Practitioner
DX: M25.551 Pain in right hip (principal); I10 Essential (primary) hypertension; R10.13 Epigastric pain; N83.201 Unspecified ovarian cyst, right side
CPT/HCPCS: 96374; 99284; 73502; 74177; 80053; 83690; 84703; 85025; Q9967

== ENCOUNTER 2025-04-16 17:37 | Emergency (ER) | payer BC, SELFPAY ==
[2025-04-16 17:43] VITALS: BP 172/98
--- NOTE | 2025-04-16 18:57 | ED.GENMED ---
History of Present Illness
<Mikaela Don PA-C - Last Filed: 04/17/25 02:54>
General
Chief Complaint: Skin Problem
Source: patient
Exam Limitations: none
Time Seen by Provider: 04/16/25 18:51
Nursing documentation reviewed up to this point in time: agreed with
History of Present Illness
History of Present Illness:
Note:
CHIEF COMPLAINT(S)
Rash, pruritus
HISTORY OF PRESENT ILLNESS
The patient is a 39-year-old female with a past medical history of hypertension, gestational diabetes, who presents with a rash primarily on the legs and back, accompanied by significant itching. She reported that the symptoms began after a recent
trip to [facility]. She not noticed a rash there until last night. The patient noticed the onset of itching after exposure to potential environmental allergens in a swampy area and while briefly leaving her car windows ajar. Initially,
the rash was confined to the legs, particularly the thighs, and presented as pruritic areas without visible lesions. Over time, it evolved into visible ravi. Currently, the rash has spread to her back and lower legs, and the itchiness has increased
substantially. She has tried topical lidocaine, which provided minimal relief, and has not used any new lotions, detergents, or soaps. The patient also briefly mentioned being in a hot tub during vacation as well. She denies any fevers or chills,
nausea or vomiting. She denies any mucosal involvement of the rash, denies any oral lesions. She denies any tongue swelling, difficulty breathing, lip swelling, difficulty ambulating.
SOCIAL HISTORY
The patient did not report changes in her regular use of personal care products or environmental exposures outside of those noted during her travel.
REVIEW OF SYSTEMS
- Skin: Severe itching and rash on the legs and back.
- Musculoskeletal: Discomfort associated with itching.
PHYSICAL EXAM
General: Patient is well appearing and in no acute distress; non-toxic
Skin: Warm and dry, small papules noted to posterior thighs and lower back bilaterally with mild surrounding erythema
Head: Normocephalic, atraumatic
Eyes: Sclera non-icteric. EOMs intact.
Cardiac: Regular rate and rhythm, normal
Pulm: Normal respiratory effort
Abdomen: No abdominal tenderness to palpation
Neuro: CN II-XII intact, no focal neurologic deficits.
Psychiatric: Appropriate mood and affect.
PROBLEM LIST
- Acute: Rash, pruritus
- Differential: Contact dermatitis, potential mild bacterial infection, other allergic reactions
PLAN
Initiate treatment with a course of prednisone to reduce inflammation and itching while awaiting a further dermatological evaluation to determine the exact cause of the rash.
DIFFERENTIAL DIAGNOSIS
The Differential Diagnosis includes, in no particular order and is not limited to:
1. Contact Dermatitis
2. Insect Bites
3. Urticaria
4. Scabies
5. Viral Exanthem
6. Drug Eruption
7. Allergic Reaction to Environmental Allergens
8. Folliculitis
9. Fungal Infection
10. Keratosis Pilaris
CHART REVIEW
Reviewed [facility], reviewed ER physician documentation from 03/05/2025 patient seen for hip pain was to have an unremarkable workup she was advised to follow-up with Ortho and PCP
No discharge summary in [facility] to review
MDM/DISPOSITION
The patient is a 39-year-old female with a past medical history of hypertension, gestational diabetes, who presents with a rash primarily on the legs and back, accompanied by significant itching. She has no associated fevers or chills. There is no
mucosal involvement. She denies any sloughing of the skin. She denies any new medications. Suspect contact dermatitis. Will initiate steroids, discussed follow-up with primary, discussed strict return precautions. Patient stable for discharge.
Patient expressed understanding.
Past History
<Mikaela Don PA-C - Last Filed: 04/17/25 02:54>
Past History
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
Social History
Tobacco: Non-smoker
Alcohol: None
Drug: None
Living: with family
Employment: Employed
Family History
Family History: Other (n/c)
Review of Systems
<Mikaela Don PA-C - Last Filed: 04/17/25 02:54>
Review of Systems
All Other Systems: ROS reviewed and negative except as documented in HPI and ROS
Phy Exam
<Mikaela Don PA-C - Last Filed: 04/17/25 02:54>
Physical Exam
Physical Exam:
see hpi
Course
<Mikaela Don PA-C - Last Filed: 04/17/25 02:54>
Orders/Labs/Results
Orders:
Orders
04/16/25 19:10
Famotidine [Pepcid] 20 mg PO NOW STA
04/16/25 19:19
Prednisone [Deltasone] 40 mg PO DAILY ONE
04/17/25 08:00
Prednisone [Deltasone] 40 mg PO DAILY
Vital Signs
Initial and Last Documented VS:
Initial Vital Signs
Temp Pulse Resp BP Pulse Ox
98.9 F 76 16 172/98 100
04/16/25 17:43 04/16/25 17:43 04/16/25 17:43 04/16/25 17:43 04/16/25 17:43
Last Documented Vital Signs
Temp Pulse Resp BP Pulse Ox
98.9 F 76 16 172/98 100
04/16/25 17:43 04/16/25 17:43 04/16/25 17:43 04/16/25 17:43 04/16/25 18:57
<Praveena Kc MD - Last Filed: 04/16/25 19:34>
Orders/Labs/Results
Orders:
Orders
04/16/25 19:10
Famotidine [Pepcid] 20 mg PO NOW STA
04/16/25 19:19
Prednisone [Deltasone] 40 mg PO DAILY ONE
04/17/25 08:00
Prednisone [Deltasone] 40 mg PO DAILY
Vital Signs
Initial and Last Documented VS:
Initial Vital Signs
Temp Pulse Resp BP Pulse Ox
98.9 F 76 16 172/98 100
04/16/25 17:43 04/16/25 17:43 04/16/25 17:43 04/16/25 17:43 04/16/25 17:43
Last Documented Vital Signs
Temp Pulse Resp BP Pulse Ox
98.9 F 76 16 172/98 100
04/16/25 17:43 04/16/25 17:43 04/16/25 17:43 04/16/25 17:43 04/16/25 18:57
<Mikaela Don PA-C - Last Filed: 04/17/25 02:54>
*Pulse Oximetry
SaO2: 100
Oxygen Mode of Delivery: Room air
Patient hypoxic: no
*Critical Care Note
Total Time (30-74mins, 75-104mins- exclusive of procedures): Not Applicable
ED Attending Note
<Mikaela Don PA-C - Last Filed: 04/17/25 02:54>
-
Portions of this chart may have been created with voice recognition software.� Occasional wrong word or��sound alike� substitutions may have occurred due to the inherent limitations of voice recognition software.
<Praveena Kc MD - Last Filed: 04/16/25 19:34>
ED Attending Note
Patient seen and examined by attending physician: Yes
I performed the substantive portion of visit, reviewed & personally made and approve the management plan that is documented in note by myself or RACHID.: Yes
ED Attending Note:
39-year-old female presents with a rash prickly on the posterior aspect of her leg back associated with itching which began shortly after returning from a trip to [place]. She denies fever, chills, chest pain, shortness of breath, abdominal pain,
nausea, vomiting, drainage, or other complaints. She denies new medications. On exam, patient has a nonspecific maculopapular rash noted posterior thighs, lower back. No associated abnormalities noted on chest, abdomen, elsewhere. Suspect likely
contact dermatitis, do not note pustules, fluctuance, etc. to suggest associated infection, no stigmata of SJS, etc.
Discharge Plan
Departure
Patient Disposition: Home (Routine Discharge)
Date of Disposition: 04/16/25
Time of Disposition: 20:19
Patient with high blood pressure during this ER visit?: Yes
Condition: Good
Discharge Problem:
Contact dermatitis
Instructions: Skin Rash (DC)
Prescriptions:
New
prednisone 10 mg Tablet
See Rx Instructions .ROUTE .COMPLEX Qty: 30 0RF
Rx Instructions:
Take By Mouth:
40 mg daily x3 days, 30 mg daily x3 days,
20 mg daily x3 days, 10 mg daily x3 days.
No Action
amoxicillin [Amoxil] 875 MG tablet
875 mg PO BID Qty: 20 0RF
cefdinir 300 mg capsule
300 mg PO BID 5 Days Qty: 10 0RF
prednisone 50 mg tablet
50 mg PO DAILY Qty: 5 0RF
Referrals:
UNKNOWN - PT DOES,NOT KNOW [Family Provider]
Activity Restrictions/Additional Instructions:
Please follow-up with your primary care provider in 1 week for reassessment. Prednisone is been sent to your pharmacy. Please follow instructions for taper dosing. You can use the Benadryl gel spray that you purchased on the more irritated areas.
PLEASE RETURN EMERGENCY DEPARTMENT SHOULD YOU DEVELOP FEVERS OR CHILLS, LESIONS WITHIN YOUR MOUTH, DIFFICULTY BREATHING, TONGUE OR LIP SWELLING, DIFFICULTY SWALLOWING, OR ANY OTHER SIGNS OR SYMPTOMS WORRISOME TO YOU.
Interventions
Interventions:
*Risk Screen - Suicide Last Done: 04/16/25 17:44
*General Assessment Last Done: 04/16/25 19:28
*Neglect/Abuse Screening Last Done: 04/16/25 17:44
*ED- Fall Risk Assessment Last Done: 04/16/25 19:28
*ED COVID-19 Vaccine History Last Done: 04/16/25 19:28
*Nursing Disposition Last Done: 04/16/25 20:34
ED-Skin Assessment Last Done: 04/16/25 19:28
Discharge Date and Time
Discharge Date/Time: 04/16/25 20:35
Print Language: VIET[place]ESE
[2025-04-16] MEDS: PEPCID 20 MG PO (19:25)
[2025-04-16] MEDS: DELTASONE 40 MG PO (19:25)
[2025-04-16 19:27] VITALS: BMI 39.2
== END 2025-04-16 20:35 | disposition home or self-care (01) ==
LOC: EMR 17:37
PROVIDERS: EMERGENCY PHYSICIAN Emergency Medicine
DX: L25.9 Unspecified contact dermatitis, unspecified cause (principal); I10 Essential (primary) hypertension
CPT/HCPCS: 99282